=== PATIENT | male | born 1975 | race Hispanic/Latino ===

== ENCOUNTER → 2024-05-09 | Outpatient (CLI) | payer OTHER | END | disposition home or self-care (01) | LOC: LAB 12:24 | PROVIDERS: ATTEND Surgery | DX: C20 Malignant neoplasm of rectum (principal) ==

== ENCOUNTER → 2024-07-06 | Outpatient (CLI) | payer OTHER ==
[~2024-07-06] VITALS: Ht 167.6 cm; Wt 93.7 kg
[~2024-07-06] MED LIST: LISI20TA24 PO; METF-444 PO
--- NOTE | 2024-07-06 13:17 | EKG ---
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
[2024-07-06 13:32] VITALS: BP 160/82; PULSE 94; RESP 16; TEMP 98.1
[2024-07-06 13:32] LABS: BASOPHILS # (AUTO) 0.01 K/uL (0.00-0.20); BASOPHILS % (AUTO) 0.3 % (0.0-5.0); EOSINOPHILS # (AUTO) 0.04 K/uL (0.00-0.70); HEMATOCRIT 31.7 % (42-54); IMMATURE GRANULOCYTE ABSOLUTE 0.02 K/uL (0-1); LYMPHOCYTES # (AUTO) 0.5 K/uL (1.0-4.8); MEAN CORPUSCULAR HEMOGLOBIN 32.4 pg (27.0-33.0); MEAN CORPUSCULAR HGB CONC 33.4 g/dL (32.0-36.0); MEAN CORPUSCULAR VOLUME 96.9 fL (79-99); MONOCYTES # (AUTO) 0.6 K/uL (0.1-1.0); MONOCYTES % (AUTO) 14.7 % (3.0-13.0); NEUTROPHILS # (AUTO) 2.7 K/uL (1.8-7.7); NEUTROPHILS % (AUTO) 69.5 % (40.0-77.0); PLATELET COUNT (AUTO) 260 K/uL (130-400); RED BLOOD CELL COUNT(AUTO) 3.27 MIL/uL (4.50-6.20); RED CELL DISTRIBUTION WIDTH 15.9 % (11.0-15.5); WHITE BLOOD COUNT (AUTO) 3.9 K/uL (4.8-10.8)
[2024-07-06 13:36] LABS: INR 0.97 (0.85-1.15); PROTHROMBIN TIME 10.3 SEC (9.6-11.6)
[2024-07-06 13:37] LABS: PARTIAL THROMBOPLASTIN TIME 25.3 SEC (26.3-35.5)
[2024-07-06 13:39] LABS: ALBUMIN 3.6 g/dL (3.5-5.0); BILIRUBIN,TOTAL 0.5 mg/dL (0.2-1.0); CREATININE 0.8 mg/dL (0.5-1.3); POTASSIUM 4.3 mmol/L (3.5-5.1)
== END | disposition home or self-care (01) ==
LOC: DAH 12:42 → EDSTATUS 14:00
PROVIDERS: ATTEND Surgery
DX: C20 Malignant neoplasm of rectum (principal)
CPT/HCPCS: 86900; 80053; 85025; 85610; 85730; 86850; 86901; 36415; 93005; A6260

== ENCOUNTER 2024-11-23 11:00 | Inpatient (IN) | payer OTHER ==
[~2024-11-23] VITALS: Ht 167.6 cm; Wt 87.8 kg
[2024-11-23 12:10] VITALS: BP 137/70; PULSE 90; RESP 18; TEMP 98.4
[2024-11-23 12:31] LABS: IMMATURE GRANULOCYTE ABSOLUTE 0.04 K/uL (0-1); NUCLEATED RED BLOOD CELLS 0.0 % (0.0-0.19); PLATELET COUNT (AUTO) 256 K/uL (130-400); RED BLOOD CELL COUNT(AUTO) 2.62 MIL/uL (4.50-6.20); RED CELL DISTRIBUTION WIDTH 13.7 % (11.0-15.5); WHITE BLOOD COUNT (AUTO) 3.8 K/uL (4.8-10.8)
[2024-11-23 12:39] LABS: ASPARTATE AMINOTRANSFERASE 21.0 U/L (10-37); CREATININE 1.1 mg/dL (0.5-1.3); GLOMERULAR FILTR. RATE CALC 81.0 mL/min (>90); GLUCOSE,RANDOM 178.0 mg/dL (70-105); SODIUM SERUM 139.0 mmol/L (136-145); TOTAL PROTEIN, SERUM 8.2 g/dL (6.0-8.3); UREA NITROGEN, BLOOD 25.0 mg/dL (7-18)
[2024-11-23 12:51] LABS: INR <= 0.93 (0.85-1.15)
--- NOTE | 2024-11-23 18:16 | EKG ---
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
--- NOTE | 2024-11-26 15:28 | NUR ---
RE:LABS REPORTED CBC RESULTS TO DR BUNCH/TERRA, NO NEW ORDERS RECEIVED.
[2024-11-27] VITALS (27 sets, daily range): BP systolic 94–134; BP diastolic 52–80; PULSE 87–106; RESP 13–18; TEMP 97.1–98.2; O2SAT 96–98
[2024-11-27] MEDS ORDERED: LIDOCAINE 1%-EPI 1:100,000 20 ML VIAL ONE ×2 (06:37→07:52)
[2024-11-27] MEDS ORDERED: LIDOCAINE PF 100MG/5ML (2%) SYRINGE 5ML ONE (09:05)
[2024-11-27] MEDS ORDERED: MIDAZOLAM HCL 1 MG/ML 2ML VIAL ONE (09:07)
[2024-11-27] MEDS: SUGAMMADEX SODIUM 200 MG/2 ML VIAL IV ONE (09:24)
[2024-11-27] MEDS: ERTAPENEM SODIUM 1 GM/VIAL IV ONE (09:30)
[2024-11-27] MEDS: INDOCYANINE GREEN 25 MG VIAL IJ ONE (12:11)
--- NOTE | 2024-11-27 14:28 | OP ---
Operative Note: DATE OF PROCEDURE: 11/27/24 SURGEON: GAIL GIMENEZ MD LUMBER HANDLER: None ANESTHESIA: General ANESTHESIOLOGIST/CIRCULATION MAN: CIRCULATION MAN PREOPERATIVE DIAGNOSIS: Coloanal anastomotic stricture History of rectal cancer Ileostomy status POSTOPERATIVE DIAGNOSIS: Same PROCEDURE: Robotic Low Anterior resection without anastomosis Robotic/Laparoscopic Colostomy creation Ileostomy closure with small bowel resection Systemic ICG for assessment of anastomotic grafts ESTIMATED BLOOD LOSS: [] INDICATIONS: Mr. Triana is a very pleasant 49-year-old male with a history of rectal cancer status post low anterior resection with coloanal anastomosis with subsequent coloanal anastomotic severe stricture which was unable to be salvaged. Given this the patient was offered a permanent stoma with a colostomy with ileostomy closure. Complications, risk, alternative and benefits were explained to the patient including but not limited to infection, bleeding, injury to surrounding structures such as blood vessels nerves and other organs, permanent stoma, sepsis, recurrence of disease and need for additional procedures. The patient voiced understanding and wished to proceed with surgery. All of the patient's questions were answered to his satisfaction. DESCRIPTION OF PROCEDURE: After informed consent was obtained, the patient was taken to the operating room and laid in the supine position. Once general endotracheal anesthesia was obtained, the patient was carefully placed into the lithotomy position. Next the abdomen was prepped and draped in the usual sterile fashion. A timeout was performed to confirm the correct patient and procedure. Next we entered the abdomen at Hernandez's point with a Veress needle and was confirmed to be intra-abdominal with a saline drop test. Next pneumoperitoneum was obtained, we then made an 8 mm incision followed placement of a trocar. The camera was inserted and the abdomen was inspected Next the remaining trocars were inserted under direct visualization in a horizontal manner across the mid abdomen at prior incision sites. Next the robot was docked in the usual sterile fashion. We then placed an assist port in left upper quadrant given the ileostomy was in the right upper quadrant. We began by mobilizing the sigmoid colon in a [id number] manner. There was a significant amount of adhesions given his prior low anterior resection against a left pelvic sidewall. We took the proximal sigmoid colon off of the left lower quadrant and left pelvic sidewall. We then dissected posteriorly to find a plane to the side promontory and then was able to identify the lateral side ensuring that we did not into the retroperitoneum the area of the ureter. We then dissected posteriorly which was extremely difficult due to the prior surgery and radiation to the pelvis. We took the mesentery of the proximal sigmoid colon up to a healthy portion of the bowel. Then transected with a blue load stapler. We then continued the pelvic dissection laterally on both the left and right side. This tissue was extremely vascular and scarred making the dissection extremely difficult. The patient's pelvis was also extremely small and fibrotic to the prior radiation. We dissected as distal as possible taking great care to not injure pelvic structures. We got below the level of the prostate tissue the pelvis was extremely firm and fibrotic. Given this we then transected the far distal as possible with a blue load stapler. Systemic ICG was given intravenously and confirmed the remaining colon in the pelvis was well-perfused as well as the colon to be used for the colostomy. We then irrigated the pelvis until clear and ensured hemostasis. We then placed hemostatic powder down to the pelvis. We then undocked the robot and began to take down the ileostomy.Next the ileostomy site was incised leaving a small rim of skin. Dissection was carried down to release the small bowel from the surrounding tissue and fascia. We then took great care to separate the small bowel from the surrounding fascia. Once this was performed we are able to pull up an adequate amount of small bowel to perform and anastomosis. We chose two healthy segments of small bowel and performed a small bowel resection of the small bowel between these points. The mesentery was clamped and tied for hemostasis. Next using a blue load HÉCTOR stapler the proximal and distal small bowel were transected and the small bowel sent as specimen. Next, an allis clamp was placed onto the edge of the staple line, this was cut off and the stapler placed into the small bowel. A performed a side to side stapled small bowel anastomosis in the standard fashion. Prior to closing the common enterotomy hemostasis of the interior staple line was checked for and obtained. Next allis clamps were placed onto the common enterotomy which was closed with a TA 60 stapler. Next the staple line was oversewn. A crotch stitch was placed. Hemostasis was checked for and obtained. Next the small bowel was placed back into the abdomen. We then placed a wound protector into this area and regained pneumoperitoneum. We assured hemostasis and placed additional hemostatic powder into the left lower quadrant. We then grasped the colon and brought it out through this wound protector at the prior ileostomy site. It was decided to matured the colostomy at this site to avoid complex hernia formation in the future. We then left a drain down to the pelvis. All trocars were removed and the 12 mm port site was closed with a Vicryl stitch. A drain stitch stay drain in place. We then closed all skin incisions with Monocryl sutures and Dermabond was placed as sterile dressing. We then m atured the colostomy in the usual fashion using chromic sutures. An ostomy appliance was placed. The patient tolerated the procedure well was taken to the recovery in stable condition. I discussed the above with the family member at completion of the case. Complications: none Blood loss 30cc Specimens: small bowel Colon COUNTS WERE REPORTED CORRECT X 2 BY NURSING STAFF GAIL GIMENEZ MD Nov 27, 2024 14:28
[2024-11-27] MEDS ORDERED: GLUCAGON 1MG KIT 1 MG ML IM PRN (16:00)
[2024-11-27] MEDS ORDERED: DEXTROSE 50%-WATER 50 ML DISP.SYRIN IV PRN (16:00)
[2024-11-27] MEDS: LACTATED RINGERS 1000ML 1,000 ML IV SCH (17:22)
--- NOTE | 2024-11-27 18:39 | HP ---
[facility] Date of Service: Nov 27, 2024 Time of Service: 18:29 HISTORY OF PRESENT ILLNESS: 49-year-old male with past medical history of rectal cancer, hypertension, diabetes mellitus type 2 who presented to the hospital secondary to who pre sented to the hospital secondary to coloanal anastomotic stricture. The patient had previously undergone a low anterior resection with coloanal anastomosis with subsequent colo anal anastomotic severe stricture which was unable to be salvaged. Patient was offered permanent stoma with colostomy and ileostomy closure. The patient was evaluated by Colorectal surgery as outpatient and agreed to the procedure. Patient underwent robotic low anterior resection without anastomosis, robotic/laparoscopic colostomy creation, ileostomy closure with small bowel resection by Dr. cerrato on 11/27/2024. The patient seen postprocedure. Currently denies any chest pain, shortness of breath, abdominal pain, nausea, vomiting. The patient is being followed by Dr. Thurman oncologist in [place]. Currently he is not on chemotherapy. Labs were notable for white count of 3.8, hemoglobin was 9.2, MCV was 104.6, platelet count was 256 K, sodium was 139, potassium was 5.1, creatinine was 1.1, blood glucose was 178 REVIEW OF SYSTEMS CONSTITUTIONAL: Denies fevers, chills, or night sweats. No unintentional weight loss reported. NEUROLOGICAL: Denies headache, amaurosis fugax, motor weakness, sensory deficit, vertigo/spinning sensation, gait abnormalities, or tremors. ENT: No hearing loss, otalgia, otorrhea, rhinitis, rhinorrhea, hoarseness, or sore throat. CARDIOVASCULAR: Denies any exertional angina, dyspnea on exertion, orthopnea, paroxysmal nocturnal dyspnea, palpitations, life-threatening arrhythmias, claudication. PULMONARY: Denies any shortness of breath, cough, phlegm/sputum, hemoptysis, pleuritic chest pain. SLEEP: Denies morning headaches, daytime somnolence or napping. Denies difficulty falling asleep, staying asleep, waking from sleep. Denies knowledge of snoring. GASTROINTESTINAL: Denies any type of dysphagia to either liquids or solids. Denies nausea, vomiting, pyrosis, early satiety, abdominal pain, diarrhea, constipation, or changes in stool consistency or caliber. Denies coffee-ground emesis, hematemesis, hematochezia, or melanotic stools. GENITOURINARY: Denies frequency, urgency, nocturia, hematuria or incontinence (Storage/Irritative symptoms.) Low urinary stream, straining to void, urinary intermittency or hesitancy, splitting of the voiding stream, terminal dribbling. ENDOCRINOLOGIC: Denies polyuria, polydipsia, polyphagia or heat/cold intolerances. HEMATOLOGIC: Denies thrombophilia/previous clots, or coagulopathy/bleeding disorders. ONCOLOGIC: Denies personal history of malignancy. DERMATOLOGIC: Denies rashes or pruritus. PSYCHIATRIC: Denies any suicidal or homicidal ideation. Denies hallucinations. PAST MEDICAL HISTORY: Hypertension, diabetes mellitus type 2, rectal cancer PAST SURGICAL HISTORY: Robotic low anterior resection, colo anal pull-through anastomosis, robotic diverting loop ileostomy, amniotic graft placement on 07/25/2024 PAST SOCIAL HISTORY: Denied any smoking, alcohol, drug use FAMILY HISTORY: Denied any pertinent family history Coded Allergies: No Known Drug Allergies (Unverified Allergy, Unknown, 07/06/24) PHYSICAL EXAM GENERAL APPEARANCE: The patient is awake, alert, and oriented, in no acute cardiopulmonary distress. NEUROLOGICAL: Cranial nerves II-XII grossly intact. Motor is 5/5 in bilateral upper and lower extremities proximal to distal. No sensory deficits. HEENT: Face is symmetric. Pupils are equal and reactive. Extraocular movements are intact. NECK: Supple. No JVD. No thyromegaly. No submental, submandibular, pre- /postauricular, occipital or supraclavicular lymphadenopathy. CHEST: Normal chest expansion. No Telemetry. LUNGS: Absence of any rales, rhonchi or any wheezing. CARDIOVASCULAR: Regular. S1 and S2 normal. No appreciable rubs, murmurs or gallops. ABDOMEN: Soft, nontender, and nondistended. There is no rebound, voluntary guarding, or rigidity. : Deferred. No Hugo. EXTREMITIES: Non-edematous and not cyanotic. No clubbing. Good capillary refill. SKIN: No skin breakdown. Vital Sign (Last 24 Hours) 11/27/24 11/27/24 11/27/24 11/27/24 07:30 14:50 14:55 16:15 Temp 97.3 Pulse 96 Resp 18 B/P (MAP) 112/62 Pulse Ox 97 O2 Delivery Room Air O2 Flow Rate 2.0 FiO2 21 LABS: Laboratory: Test 11/27/24 16:02 Range/Units Whole Blood Glucose 283 H 70-110 MG/DL Current Medications Medications (Trade) Dose Ordered Sig/Ken Route PRN Reason Start Time Stop Time Status Last Admin Dose Admin Acetaminophen (TYLenol 325MG TAB) 650 mg Q4H PO 11/27/24 14:30 12/27/24 14:29 Dextrose (D50w) 50 ml AD PRN IV HYPOGLYCEMIA PROTOCOL 11/27/24 16:00 12/27/24 15:59 Enoxaparin Sodium (Lovenox) 40 mg DAILY SQ 11/28/24 08:00 12/28/24 07:59 Gabapentin (NEURontin 100 mg CAP) 200 mg TID PO 11/27/24 21:00 12/27/24 20:59 Glucagon (Glucagon 1mg Kit) 1 mg AD PRN IM HYPOGLYCEMIA PROTOCOL 11/27/24 16:00 12/27/24 15:59 Hydromorphone HCl (DiLAUDid 0.5MG INJ) 0.5 mg Q4H PRN IVP SEVERE PAIN (7-10) 11/27/24 14:30 12/02/24 14:29 Insulin Human Regular (humuLIN R 100 UNIT/ML 3ML) AD PRN SQ SLIDING SCALE COVERAGE 11/27/24 14:30 11/27/24 15:57 DC Insulin Human Regular (humuLIN R 100 UNIT/ML 3ML) INSULIN SLIDING SCAL... ACHS SQ 11/27/24 16:30 12/27/24 16:29 Lactated Ringer's 1,000 ml @ 50 mls/hr Q20H IV 11/27/24 14:30 12/27/24 14:29 Lisinopril (Prinivil 20mg) 20 mg HS PO 11/27/24 21:00 12/27/24 20:59 Ondansetron HCl (zoFRAN 4MG INJ) 4 mg Q4H PRN IVP NAUSEA 11/27/24 14:30 12/27/24 14:29 Oxycodone HCl (ROXicoDONE) 5 mg Q4H PRN PO MODERATE PAIN (4-6) 11/27/24 14:30 12/04/24 14:29 DIAGNOSTICS / RADIOLOGY: [ ] ASSESSMENT: [place] anal anastomotic stricture status post robotic low anterior resection without anastomosis, robotic/laparoscopic colostomy creation, ileostomy closure with small bowel resection Hypertension Diabetes mellitus type 2 Microcytic anemia Rectal cancer PLAN: - continue with admission in medical-surgical unit -in reference to low anterior resection with colostomy creation. We will follow surgical recommendations. We will follow up pain medication recommendations per surgery. Incentive spirometer Q 1-2 hours -obtain home medications will be reconciled once available -obtain anemia panel for tomorrow. Start IV iron if anemia consistent with iron deficiency anemia -repeat CBC, BMP for tomorrow -start sliding scale insulin and hypoglycemia protocol -further orders per hospitalization course Advanced Care Planning Which of the following were discussed: Hospice care: Yes __ No _x_ Therapeutic options: Yes __ No __ Advance directives: Yes __ No __ Other discussions: Discussed with who?: patient was full code (Patient, family or surrogates) Voluntary nature of this service was explained to the patient? Yes _x_ No __ Amount of time spent: 25 minutes TONI Easton MD, MD Nov 27, 2024 18:39
[2024-11-27] MEDS: LISINOPRIL 20 MG TABLET PO SCH (20:45)
[2024-11-27] MEDS: FAMOTIDINE 20MG VIAL IV SCH (21:07)
[2024-11-28] VITALS (7 sets, daily range): BP systolic 90–115; BP diastolic 54–70; PULSE 80–101; RESP 17–20; TEMP 98–98.5; O2SAT 96–98
[2024-11-28 06:25] LABS: IMMATURE GRANULOCYTE ABSOLUTE 0.05 K/uL (0-1); NUCLEATED RED BLOOD CELLS 0.0 % (0.0-0.19); PLATELET COUNT (AUTO) 216 K/uL (130-400); RED BLOOD CELL COUNT(AUTO) 2.08 MIL/uL (4.50-6.20); RED CELL DISTRIBUTION WIDTH 13.5 % (11.0-15.5); WHITE BLOOD COUNT (AUTO) 7.1 K/uL (4.8-10.8)
[2024-11-28 06:34] LABS: CREATININE 1.3 mg/dL (0.5-1.3); GLOMERULAR FILTR. RATE CALC 67.0 mL/min (>90); GLUCOSE,RANDOM 149.0 mg/dL (70-105); SODIUM SERUM 136.0 mmol/L (136-145); UREA NITROGEN, BLOOD 25.0 mg/dL (7-18)
[2024-11-28 07:18] LABS: % IRON SATURATION 27.6 % (30-44); IRON, SERUM 62.0 mcg/dL (65-175)
--- NOTE | 2024-11-28 07:38 | PN ---
[facility] PROGRESS NOTE Date of Service: Nov 28, 2024 Time of Service: 07:10 SUBJECTIVE: 49-year-old male with past medical history of rectal cancer, hypertension, diabetes mellitus type 2 who presented to the hospital secondary to who presented to the hospital secondary to coloanal anastomotic stricture. The patient had previously undergone a low anterior resection with coloanal anasto mosis with subsequent colo anal anastomotic severe stricture which was unable to be salvaged. Patient was offered permanent stoma with colostomy and ileostomy closure. The patient was evaluated by Colorectal surgery as outpatient and agreed to the procedure. Patient underwent robotic low anterior resection without anastomosis, robotic/laparoscopic colostomy creation, ileostomy closure with small bowel resection by Dr. cerrato on 11/27/2024. The patient seen postprocedure. Currently denies any chest pain, shortness of breath, abdominal pain, nausea, vomiting. The patient is being followed by Dr. Thurman oncologist in [place]. Currently he is not on chemotherapy. Labs were notable for white count of 3.8, hemoglobin was 9.2, MCV was 104.6, platelet count was 256 K, sodium was 139, potassium was 5.1, creatinine was 1.1, blood glucose was 178 with a history of rectal cancer status post low anterior resection with coloanal anastomosis with subsequent coloanal anastomotic severe stricture which was unable to be salvaged. Given this the patient was offered a permanent stoma with a colostomy with ileostomy closure. Robotic Low Anterior resection without anastomosis Robotic/Laparoscopic Colostomy creation Ileostomy closure with small bowel resection REVIEW OF SYSTEMS CONSTITUTIONAL: Denies fevers, chills, or night sweats. No unintentional weight loss reported. NEUROLOGICAL: Denies headache, amaurosis fugax, motor weakness, sensory deficit, vertigo/spinning sensation, gait abnormalities, or tremors. ENT: No hearing loss, otalgia, otorrhea, rhinitis, rhinorrhea, hoarseness, or sore throat. CARDIOVASCULAR: Denies any exertional angina, dyspnea on exertion, orthopnea, paroxysmal nocturnal dyspnea, palpitations, life-threatening arrhythmias, claudication. PULMONARY: Denies any shortness of breath, cough, phlegm/sputum, hemoptysis, pleuritic chest pain. SLEEP: Denies morning headaches, daytime somnolence or napping. Denies difficulty falling asleep, staying asleep, waking from sleep. Denies knowledge of snoring. GASTROINTESTINAL: Denies any type of dysphagia to either liquids or solids. Denies nausea, vomiting, pyrosis, early satiety, abdominal pain, diarrhea, c onstipation, or changes in stool consistency or caliber. Denies coffee-ground emesis, hematemesis, hematochezia, or melanotic stools. GENITOURINARY: Denies frequency, urgency, nocturia, hematuria or incontinence (Storage/Irritative symptoms.) Low urinary stream, straining to void, urinary intermittency or hesitancy, splitting of the voiding stream, terminal dribbling. ENDOCRINOLOGIC: Denies polyuria, polydipsia, polyphagia or heat/cold intolerances. HEMATOLOGIC: Denies thrombophilia/previous clots, or coagulopathy/bleeding disorders. ONCOLOGIC: Denies personal history of malignancy. DERMATOLOGIC: Denies rashes or pruritus. PSYCHIATRIC: Denies any suicidal or homicidal ideation. Denies hallucinations. PHYSICAL EXAM GENERAL APPEARANCE: The patient is awake, alert, and oriented, in no acute ca rdiopulmonary distress. NEUROLOGICAL: Cranial nerves II-XII grossly intact. Motor is 5/5 in bilateral upper and lower extremities proximal to distal. No sensory deficits. HEENT: Face is symmetric. Pupils are equal and reactive. Extraocular movements are intact. NECK: Supple. No JVD. No thyromegaly. No submental, submandibular, pre- /postauricular, occipital or supraclavicular lymphadenopathy. CHEST: Normal chest expansion. No Telemetry. LUNGS: Absence of any rales, rhonchi or any wheezing. CARDIOVASCULAR: Regular. S1 and S2 normal. No appreciable rubs, murmurs or gallops. ABDOMEN: Soft, nontender, and nondistended. There is no rebound, voluntary guarding, or rigidity. : Deferred. No Hugo. EXTREMITIES: Non-edematous and not cyanotic. No clubbing. Good capillary refill. SKIN: No skin breakdown. Vital Signs (last 8hr) Date Time Temp Pulse Resp B/P (MAP) Pulse Ox O2 Delivery O2 Flow Rate FiO2 11/28/24 03:54 98.2 101 17 100/58 97 Room Air 11/27/24 23:42 98.2 106 17 94/52 95 Room Air LABS: Laboratory: Test 11/28/24 06:05 11/28/24 05:31 Range/Units White Blood Count 7.1 4.8-10.8 K/uL Red Blood Count 2.08 L 4.50-6.20 MIL/uL Hemoglobin 7.4 L 14.0-18.0 g/dL Hematocrit 21.1 L 42-54 % Mean Corpuscular Volume 101.4 H 79-99 fL Mean Corpuscular Hemoglobin 35.6 H 27.0-33.0 pg Mean Corpuscular Hemoglobin Concent 35.1 32.0-36.0 g/dL Red Cell Distribution Width 13.5 11.0-15.5 % Platelet Count 216 130-400 K/uL Mean Platelet Volume 9.5 7.5-10.5 fL Immature Granulocyte % (Auto) 0.7 0-1 % Neutrophils (%) (Auto) 79.4 H 40.0-77.0 % Lymphocytes (%) (Auto) 6.8 L 21.0-51.0 % Monocytes (%) (Auto) 13.0 3.0-13.0 % Eosinophils (%) (Auto) 0.0 0.0-8.0 % Basophils (%) (Auto) 0.1 0.0-5.0 % Neutrophils # (Auto) 5.6 1.8-7.7 K/uL Lymphocytes # (Auto) 0.5 L 1.0-4.8 K/uL Monocytes # (Auto) 0.9 0.1-1.0 K/uL Eosinophils # (Auto) 0.00 0.00-0.70 K/uL Basophils # (Auto) 0.01 0.00-0.20 K/uL Absolute Immature Granulocyte (auto 0.05 0-1 K/uL Nucleated Red Blood Cells 0.0 0.0-0.19 % Sodium Level 136 136-145 mmol/L Potassium Level 4.6 3.5-5.1 mmol/L Chloride Level 106 101-111 mmol/L Carbon Dioxide Level 24 21-32 mmol/L Blood Urea Nitrogen 25 H 7-18 mg/dL Creatinine 1.3 0.5-1.3 mg/dL Glomerular Filtration Rate Calc 67 >90 mL/min Random Glucose 149 H 70-105 mg/dL Total Calcium 8.3 L 8.5-10.1 mg/dL Whole Blood Glucose 143 H 70-110 MG/DL Current Medications Medications (Trade) Dose Ordered Sig/Ken Route PRN Reason Start Time Stop Time Status Last Admin Dose Admin Acetaminophen (TYLenol 325MG TAB) 650 mg Q4H PO 11/27/24 14:30 12/27/24 14:29 11/28/24 06:36 650 MG Dextrose (D50w) 50 ml AD PRN IV HYPOGLYCEMIA PROTOCOL 11/27/24 16:00 12/27/24 15:59 Enoxaparin Sodium (Lovenox) 40 mg DAILY SQ 11/28/24 08:00 12/28/24 07:59 Famotidine (Pepcid 20mg Vial) 20 mg BID IV 11/27/24 21:00 12/27/24 20:59 11/27/24 21:07 20 MG Gabapentin (NEURontin 100 mg CAP) 200 mg TID PO 11/27/24 21:00 12/27/24 20:59 11/27/24 21:07 200 MG Glucagon (Glucagon 1mg Kit) 1 mg AD PRN IM HYPOGLYCEMIA PROTOCOL 11/27/24 16:00 12/27/24 15:59 Hydromorphone HCl (DiLAUDid 0.5MG INJ) 0.5 mg Q4H PRN IVP SEVERE PAIN (7-10) 11/27/24 14:30 12/02/24 14:29 Insulin Human Regular (humuLIN R 100 UNIT/ML 3ML) AD PRN SQ SLIDING SCALE COVERAGE 11/27/24 14:30 11/27/24 15:57 DC Insulin Human Regular (humuLIN R 100 UNIT/ML 3ML) INSULIN SLIDING SCAL... ACHS SQ 11/27/24 16:30 12/27/24 16:29 11/27/24 21:08 5 UNIT Lactated Ringer's 1,000 ml @ 50 mls/hr Q20H IV 11/27/24 14:30 12/27/24 14:29 11/27/24 17:22 50 MLS/HR Lisinopril (Prinivil 20mg) 20 mg HS PO 11/27/24 21:00 12/27/24 20:59 Ondansetron HCl (zoFRAN 4MG INJ) 4 mg Q4H PRN IVP NAUSEA 11/27/24 14:30 12/27/24 14:29 Oxycodone HCl (ROXicoDONE) 5 mg Q4H PRN PO MODERATE PAIN (4-6) 11/27/24 14:30 12/04/24 14:29 DIAGNOSTICS / RADIOLOGY: [ ] ASSESSMENT: [place] anal anastomotic stricture status post robotic low anterior resection without anastomosis, robotic/laparoscopic colostomy creation, ileostomy closure with small bowel resection Hypertension Diabetes mellitus type 2 Macrocytic anemia Rectal cancer PLAN: [place] anal anastomotic stricture status post robotic low anterior resection without anastomosis, robotic/laparoscopic colostomy creation, ileostomy closure with small bowel resection Rectal cancer -We will follow surgical recommendations. -We will follow up pain medication recommendations per surgery. -Incentive spirometer Q 1-2 hours -repeat CBC, BMP for tomorrow Diabetes mellitus type 2 -start sliding scale insulin and hypoglycemia protocol Macrocytic anemia -hemoglobin 7.4, ferritin 60, saturation 27.6, iron 62, TIBC 224, B12 142 -we will give iron sucrose -we will start him on vitamin B12 DVT prophylaxis: Lovenox GI prophylaxis: famotidine ATTESTATION BY PHYSICIAN I have seen and examined the patient. I reviewed the documentation, medical decision making, and treatment plan as noted by the resident provider above. I agree with the findings and plan of care. Ever Arevalo MD, SUNIL MD Nov 28, 2024 07:38
[2024-11-28] MEDS: ENOXAPARIN SODIUM 40 MG/0.4 ML SYRINGE SQ SCH (08:00)
--- NOTE | 2024-11-28 10:38 | NUR ---
DCP:HOME Pt currently lives at home with his siblings. Pt does not have any DME, home health, or provider services. Pt states that he is able to complete ADLs independently. PCP is Dr. Reese Seo and uses [facility] for any RX needs. At [place] pt will want to go home and family can assist with transportation. Addendum: 11/28/24 at 1042 by OBINNA GONSALEZ SS Amended: Links added.
--- NOTE | 2024-11-28 11:15 | NUR ---
PER PATIENT, NURSE AND LINE SUPPLY, PATIENT HAS BEEN WALKING IN THE HALLWAYS NO DEFICITS NOTED. DC FROM PT. Addendum: 11/28/24 at 1218 by JAYCEE SCHMIDT PT Amended: Links added.
--- NOTE | 2024-11-28 14:06 | PN ---
[facility] PROGRESS NOTE Date of Visit: Nov 28, 2024 Time of Visit: 13:57 Events / Notes: [49 yo with history of rectal cancer, ileostomy status, hypertension, Type 1 DM, who developed coloanal anastomotic stricture and underwent a robotic low anterior resection without anastomosis, colostomy creation, ileostomy closure with small bowel resection, systemic ICG for assessment of anastomotic grafts. Patient is doing very well. VSS. He has tolerated fluids without any n/v. BBS are clear. Abdomen is soft. Large amounts of soft to watery output from colostomy. Incisions D&I instant potato processor. Stevie drain with serosanguinous output. Patient has voided without difficulties. Encouraged ambulation. Patient agreed. Review of Systems: CONSTITUTIONAL: No malaise or change in sensation of wellbeing. ENMT: No rhinorrhea, otorrhea, sinus pain, ear ache. CARDIOVASCULAR: No angina, palpitations, orthopnea or paroxysmal dyspnea. RESPIRATORY: No SOB. GASTROINTESTINAL: No abdominal pain, nausea, vomiting, diarrhea, hematemesis, melena or change in the patient's habitual bowel movements consistency/number. GENITOURINARY: No dysuria, hematuria or change in bladder continence. MUSCULOSKELETAL: No new muscle pain or decrease in muscular strength. No new joint swelling, redness or tenderness. SKIN: No new rash. Physical Exam: GEN: Awake, alert, oriented in person, time and place, and in no acute distress. HEENT: No rhinorrhea. Oral pharyngeal mucosa is moist and within normal limits. CHEST: Lung auscultation revealed normal breath sounds bilaterally. CARDIAC: Heart sounds are regular. ABD: Soft, non-tender and not distended. No peritoneal signs on palpation. Normal bowel sounds. Colostomy with large amounts of soft to watery output. EXT: No cyanosis or clubbing. No edema. SKIN: Intact. No rashes. JOINTS: No evidence of synovitis or acute arthritis. NEURO: Alert and oriented to name, place and person. No focal motor deficits. Normal speech. Vital Signs (last 8hr) Date Time Temp Pulse Resp B/P (MAP) Pulse Ox O2 Delivery O2 Flow Rate FiO2 11/28/24 11:28 98.4 91 18 101/54 97 Room Air 11/28/24 08:00 96 Room Air* 0 21 11/28/24 07:28 98.4 92 18 90/54 96 Room Air Laboratory: [ ] Laboratory: Test 11/28/24 11:17 11/28/24 09:27 11/28/24 06:05 Range/Units Whole Blood Glucose 165 H 70-110 MG/DL Hemoglobin 7.7 L 14.0-18.0 g/dL Hematocrit 23.7 L 42-54 % White Blood Count 7.1 4.8-10.8 K/uL Red Blood Count 2.08 L 4.50-6.20 MIL/uL Mean Corpuscular Volume 101.4 H 79-99 fL Mean Corpuscular Hemoglobin 35.6 H 27.0-33.0 pg Mean Corpuscular Hemoglobin Concent 35.1 32.0-36.0 g/dL Red Cell Distribution Width 13.5 11.0-15.5 % Platelet Count 216 130-400 K/uL Mean Platelet Volume 9.5 7.5-10.5 fL Immature Granulocyte % (Auto) 0.7 0-1 % Neutrophils (%) (Auto) 79.4 H 40.0-77.0 % Lymphocytes (%) (Auto) 6.8 L 21.0-51.0 % Monocytes (%) (Auto) 13.0 3.0-13.0 % Eosinophils (%) (Auto) 0.0 0.0-8.0 % Basophils (%) (Auto) 0.1 0.0-5.0 % Neutrophils # (Auto) 5.6 1.8-7.7 K/uL Lymphocytes # (Auto) 0.5 L 1.0-4.8 K/uL Monocytes # (Auto) 0.9 0.1-1.0 K/uL Eosinophils # (Auto) 0.00 0.00-0.70 K/uL Basophils # (Auto) 0.01 0.00-0.20 K/uL Absolute Immature Granulocyte (auto 0.05 0-1 K/uL Nucleated Red Blood Cells 0.0 0.0-0.19 % Reticulocyte Count (auto) 1.78216 0.42-2.23 % Immature Reticulocyte Fraction 21.20 H 0.18-0.48 % Sodium Level 136 136-145 mmol/L Potassium Level 4.6 3.5-5.1 mmol/L Chloride Level 106 101-111 mmol/L Carbon Dioxide Level 24 21-32 mmol/L Blood Urea Nitrogen 25 H 7-18 mg/dL Creatinine 1.3 0.5-1.3 mg/dL Glomerular Filtration Rate Calc 67 >90 mL/min Random Glucose 149 H 70-105 mg/dL Total Calcium 8.3 L 8.5-10.1 mg/dL Iron Level 62 L 65-175 mcg/dL Total Iron Binding Capacity 224 L 250-450 mcg/dL Percent Iron Saturation 27.6 L 30-44 % Ferritin 60 30-400 ng/mL Vitamin B12 Level 142 L 193-986 pg/mL Current Medications Medications (Trade) Dose Ordered Sig/Ken Route PRN Reason Start Time Stop Time Status Last Admin Dose Admin Acetaminophen (TYLenol 325MG TAB) 650 mg Q4H PO 11/27/24 14:30 12/27/24 14:29 11/28/24 13:20 650 MG Dextrose (D50w) 50 ml AD PRN IV HYPOGLYCEMIA PROTOCOL 11/27/24 16:00 12/27/24 15:59 Enoxaparin Sodium (Lovenox) 40 mg DAILY SQ 11/28/24 08:00 12/28/24 07:59 11/28/24 08:00 40 MG Famotidine (Pepcid 20mg Vial) 20 mg BID IV 11/27/24 21:00 12/27/24 20:59 11/28/24 08:00 20 MG Gabapentin (NEURontin 100 mg CAP) 200 mg TID PO 11/27/24 21:00 12/27/24 20:59 11/28/24 13:20 200 MG Glucagon (Glucagon 1mg Kit) 1 mg AD PRN IM HYPOGLYCEMIA PROTOCOL 11/27/24 16:00 12/27/24 15:59 Hydromorphone HCl (DiLAUDid 0.5MG INJ) 0.5 mg Q4H PRN IVP SEVERE PAIN (7-10) 11/27/24 14:30 12/02/24 14:29 Insulin Human Regular (humuLIN R 100 UNIT/ML 3ML) AD PRN SQ SLIDING SCALE COVERAGE 11/27/24 14:30 11/27/24 15:57 DC Insulin Human Regular (humuLIN R 100 UNIT/ML 3ML) INSULIN SLIDING SCAL... ACHS SQ 11/27/24 16:30 12/27/24 16:29 11/27/24 21:08 5 UNIT Lactated Ringer's 1,000 ml @ 75 mls/hr [id number] IV 11/27/24 14:30 12/27/24 14:29 11/27/24 17:22 50 MLS/HR Lisinopril (Prinivil 20mg) 20 mg HS PO 11/27/24 21:00 12/27/24 20:59 Ondansetron HCl (zoFRAN 4MG INJ) 4 mg Q4H PRN IVP NAUSEA 11/27/24 14:30 12/27/24 14:29 Oxycodone HCl (ROXicoDONE) 5 mg Q4H PRN PO MODERATE PAIN (4-6) 11/27/24 14:30 12/04/24 14:29 Diagnostics / Radiology: [COPY/PASTE HERE IF NO REPORTS PLEASE DELETE SECTION] Assessment: [Coloanal Anastomotic stricture Ileostomy status History of rectal cancer Hypertension Type 1 DM ] Plan: Case discussed with Dr. Cantrell [ Advance diet as tolerated Encourage ambulation Encourage I/S exercises Pain meds as needed Antiemetics prn Please call with questions, concerns, and change in clinical status Plan for disposition from colorectal standpoint in the next 24-48 hours. Appreciate hospitalist's assistance on our patient's care. ] KEVIN PATTON NP Nov 28, 2024 14:06
[2024-11-28] MEDS: CYANOCOBALAMIN (VITAMIN B-12) 1,000 MCG TABLET PO SCH (16:36)
[2024-11-29] VITALS (11 sets, daily range): BP systolic 112–153; BP diastolic 65–84; PULSE 83–94; RESP 16–20; TEMP 98–99; O2SAT 98–99
[2024-11-29 05:40] LABS: IMMATURE GRANULOCYTE ABSOLUTE 0.04 K/uL (0-1); NUCLEATED RED BLOOD CELLS 0.0 % (0.0-0.19); PLATELET COUNT (AUTO) 217 K/uL (130-400); RED BLOOD CELL COUNT(AUTO) 2.05 MIL/uL (4.50-6.20); RED CELL DISTRIBUTION WIDTH 13.8 % (11.0-15.5); WHITE BLOOD COUNT (AUTO) 5.7 K/uL (4.8-10.8)
[2024-11-29 06:06] LABS: CREATININE 0.9 mg/dL (0.5-1.3); GLOMERULAR FILTR. RATE CALC 103.0 mL/min (>90); GLUCOSE,RANDOM 127.0 mg/dL (70-105); SODIUM SERUM 137.0 mmol/L (136-145); UREA NITROGEN, BLOOD 17.0 mg/dL (7-18)
[2024-11-29] MEDS: CYANOCOBALAMIN (VITAMIN B-12) 1000 MCG/ML 1ML VIAL IM ONE (08:26)
--- NOTE | 2024-11-29 15:16 | PN ---
[facility] PROGRESS NOTE Date of Visit: Nov 29, 2024 Time of Visit: 15:14 Events / Notes: [49 yo with history of rectal cancer, ileostomy status, hypertension, Type 1 DM, who developed coloanal anastomotic stricture and underwent a robotic low anterior resection without anastomosis, colostomy creation, ileostomy closure with small bowel resection, systemic ICG for assessment of anastomotic grafts. Patient is doing very well. VSS. He has tolerated fluids without any n/v. BBS are clear. Abdomen is soft. Large amounts of soft to watery output from colostomy. Incisions D&I potato peeler. Stevie drain with serosanguinous output. Patient has voided without difficulties. Encouraged ambulation. Patient agreed. 11/29/24: No acute events overnight. VSS. Patient is tolerating soft diet with no n/v. He is ambulating and is having good output from colostomy. HGB 7.3. PRBC transfusion in progress. . Home care instructions given with ER warnings. He is to keep f/u appt at [facility] and with John Hunt NP wound care. Plan for discharge from colorectal standpoint tomorrow. Review of Systems: CONSTITUTIONAL: No malaise or change in sensation of wellbeing. ENMT: No rhinorrhea, otorrhea, sinus pain, ear ache. CARDIOVASCULAR: No angina, palpitations, orthopnea or paroxysmal dyspnea. RESPIRATORY: No SOB. GASTROINTESTINAL: No abdominal pain, nausea, vomiting, diarrhea, hematemesis, melena or change in the patient's habitual bowel movements consistency/number. GENITOURINARY: No dysuria, hematuria or change in bladder continence. MUSCULOSKELETAL: No new muscle pain or decrease in muscular strength. No new joint swelling, redness or tenderness. SKIN: No new rash. Physical Exam: GEN: Awake, alert, oriented in person, time and place, and in no acute distress. HEENT: No rhinorrhea. Oral pharyngeal mucosa is moist and within normal limits. CHEST: Lung auscultation revealed normal breath sounds bilaterally. CARDIAC: Heart sounds are regular. ABD: Soft, non-tender and not distended. No peritoneal signs on palpation. Normal bowel sounds. Colostomy with large amounts of soft to watery output. EXT: No cyanosis or clubbing. No edema. SKIN: Intact. No rashes. JOINTS: No evidence of synovitis or acute arthritis. NEURO: Alert and oriented to name, place and person. No focal motor deficits. Normal speech. Vital Signs (last 8hr) Date Time Temp Pulse Resp B/P (MAP) Pulse Ox O2 Delivery O2 Flow Rate FiO2 11/29/24 12:00 98.2 90 18 153/76 98 Room Air 21 11/29/24 08:00 98.4 94 19 123/68 99 Room Air 21 Laboratory: [ ] Laboratory: Test 11/29/24 13:54 11/29/24 11:29 11/29/24 05:09 11/28/24 06:05 Range/Units Hemoglobin 7.3 L 14.0-18.0 g/dL Hematocrit 21.0 *L 42-54 % Whole Blood Glucose 151 H 70-110 MG/DL White Blood Count 5.7 4.8-10.8 K/uL Red Blood Count 2.05 L 4.50-6.20 MIL/uL Mean Corpuscular Volume 103.4 H 79-99 fL Mean Corpuscular Hemoglobin 35.1 H 27.0-33.0 pg Mean Corpuscular Hemoglobin Concent 34.0 32.0-36.0 g/dL Red Cell Distribution Width 13.8 11.0-15.5 % Platelet Count 217 130-400 K/uL Mean Platelet Volume 10.1 7.5-10.5 fL Immature Granulocyte % (Auto) 0.7 0-1 % Neutrophils (%) (Auto) 72.7 40.0-77.0 % Lymphocytes (%) (Auto) 10.9 L 21.0-51.0 % Monocytes (%) (Auto) 14.4 H 3.0-13.0 % Eosinophils (%) (Auto) 1.1 0.0-8.0 % Basophils (%) (Auto) 0.2 0.0-5.0 % Neutrophils # (Auto) 4.1 1.8-7.7 K/uL Lymphocytes # (Auto) 0.6 L 1.0-4.8 K/uL Monocytes # (Auto) 0.8 0.1-1.0 K/uL Eosinophils # (Auto) 0.06 0.00-0.70 K/uL Basophils # (Auto) 0.01 0.00-0.20 K/uL Absolute Immature Granulocyte (auto 0.04 0-1 K/uL Nucleated Red Blood Cells 0.0 0.0-0.19 % Sodium Level 137 136-145 mmol/L Potassium Level 4.1 3.5-5.1 mmol/L Chloride Level 106 101-111 mmol/L Carbon Dioxide Level 26 21-32 mmol/L Blood Urea Nitrogen 17 7-18 mg/dL Creatinine 0.9 0.5-1.3 mg/dL Glomerular Filtration Rate Calc 103 >90 mL/min Random Glucose 127 H 70-105 mg/dL Total Calcium 8.2 L 8.5-10.1 mg/dL Reticulocyte Count (auto) 1.41066 0.42-2.23 % Immature Reticulocyte Fraction 21.20 H 0.18-0.48 % Iron Level 62 L 65-175 mcg/dL Total Iron Binding Capacity 224 L 250-450 mcg/dL Percent Iron Saturation 27.6 L 30-44 % Ferritin 60 30-400 ng/mL Vitamin B12 Level 142 L 193-986 pg/mL Current Medications Medications (Trade) Dose Ordered Sig/Ken Route PRN Reason Start Time Stop Time Status Last Admin Dose Admin Acetaminophen (TYLenol 325MG TAB) 650 mg Q4H PO 11/27/24 14:30 11/28/24 15:49 DC 11/28/24 13:20 650 MG Acetaminophen (TYLenol 500MG TAB) 1,000 mg Q6H PRN PO MILD PAIN (1-3) 11/28/24 16:00 12/28/24 15:59 Dextrose (D50w) 50 ml AD PRN IV HYPOGLYCEMIA PROTOCOL 11/27/24 16:00 12/27/24 15:59 Enoxaparin Sodium (Lovenox) 40 mg DAILY SQ 11/28/24 08:00 12/28/24 07:59 11/29/24 08:27 40 MG Famotidine (Pepcid 20mg Vial) 20 mg BID IV 11/27/24 21:00 12/27/24 20:59 11/29/24 08:26 20 MG Folic Acid (FOLic ACID 1 MG TABLET) 1 mg DAILY PO 11/29/24 09:00 12/29/24 08:59 11/29/24 08:27 1 MG Gabapentin (NEURontin 100 mg CAP) 200 mg TID PO 11/27/24 21:00 12/27/24 20:59 11/29/24 13:23 200 MG Glucagon (Glucagon 1mg Kit) 1 mg AD PRN IM HYPOGLYCEMIA PROTOCOL 11/27/24 16:00 12/27/24 15:59 Hydromorphone HCl (DiLAUDid 0.5MG INJ) 0.5 mg Q4H PRN IVP SEVERE PAIN (7-10) 11/27/24 14:30 12/02/24 14:29 Insulin Human Regular (humuLIN R 100 UNIT/ML 3ML) AD PRN SQ SLIDING SCALE COVERAGE 11/27/24 14:30 11/27/24 15:57 DC Insulin Human Regular (humuLIN R 100 UNIT/ML 3ML) INSULIN SLIDING SCAL... ACHS SQ 11/27/24 16:30 12/27/24 16:29 11/27/24 21:08 5 UNIT Lactated Ringer's 1,000 ml @ 75 mls/hr [id number] IV 11/27/24 14:30 12/27/24 14:29 11/29/24 12:45 75 MLS/HR Lisinopril (Prinivil 20mg) 20 mg HS PO 11/27/24 21:00 12/27/24 20:59 Ondansetron HCl (zoFRAN 4MG INJ) 4 mg Q4H PRN IVP NAUSEA 11/27/24 14:30 12/27/24 14:29 Oxycodone HCl (ROXicoDONE) 5 mg Q4H PRN PO MODERATE PAIN (4-6) 11/27/24 14:30 12/04/24 14:29 Vitamin B Complex (Vitamin B-12) 1,000 mcg DAILY PO 11/28/24 16:30 11/29/24 08:06 DC 11/28/24 16:36 1,000 MCG Diagnostics / Radiology: [COPY/PASTE HERE IF NO REPORTS PLEASE DELETE SECTION] Assessment: [Coloanal Anastomotic stricture Ileostomy status Anemia History of rectal cancer Hypertension Type 1 DM ] Plan: Case discussed with Dr. Cantrell Transfuse 1 unit of PRBC [Soft diet Encourage ambulation Encourage I/S exercises Pain meds as needed Antiemetics prn He has f/u appt at [facility] office on 12/05/24 at 10:00am Please call with questions, concerns, and change in clinical status Appreciate hospitalist's assistance on our patient's care. ] KEVIN PATTON NP Nov 29, 2024 15:16
--- NOTE | 2024-11-29 17:10 | PN ---
[facility] PROGRESS NOTE Date of Service: Nov 29, 2024 Time of Service: 16:48 SUBJECTIVE: 49-year-old male with past medical history of rectal cancer, hypertension, diabetes mellitus type 2 who presented to the hospital secondary to who presented to the hospital secondary to coloanal anastomotic stricture. The patient had previously undergone a low anterior resection with coloanal anasto mosis with subsequent colo anal anastomotic severe stricture which was unable to be salvaged. Patient was offered permanent stoma with colostomy and ileostomy closure. The patient was evaluated by Colorectal surgery as outpatient and agreed to the procedure. Patient underwent robotic low anterior resection without anastomosis, robotic/laparoscopic colostomy creation, ileostomy closure with small bowel resection by Dr. cerrato on 11/27/2024. The patient seen postprocedure. Currently denies any chest pain, shortness of breath, abdominal pain, nausea, vomiting. The patient is being followed by Dr. Thurman oncologist in [place]. Currently he is not on chemotherapy. Labs were notable for white count of 3.8, hemoglobin was 9.2, MCV was 104.6, platelet count was 256 K, sodium was 139, potassium was 5.1, creatinine was 1.1, blood glucose was 178 With a history of rectal cancer status post low anterior resection with coloanal anastomosis with subsequent coloanal anastomotic severe stricture which was unable to be salvaged. Given this the patient was offered a permanent stoma with a colostomy with ileostomy closure. He underwent Robotic Low Anterior resection without anastomosis ,Robotic/Laparoscopic Colostomy creation and Ileostomy closure with small bowel resection. 11/28/2024: Patient was evaluated bedside. He was AAO x3. he had mild abdominal discomfort. Dressing at the surgical site intact. Remarkable for hemoglobin 7.4, creatinine 1.3. Patient was started on clear liquid diet which he tolerated well. Physical therapy on board. He is being followed by colorectal surgeon. Rest of the plan as discussed below 11/29/2024: Patient was evaluated bedside this morning. He is AAO x3. he is hemodynamically stable. he complains of very mild abdominal discomfort. Dressing at the surgical site intact without soakage. Remarkable lab is for hemoglobin 7.2, iron saturation 27.6, iron 62, TIBC 224, vitamin B12 142. He is on LR at 75 mL/hour, IV iron, vitamin B12 and folic acid. He is tolerating diet. Getting physical therapy. Colorectal surgeon following the case. Rest of the plan as discussed below REVIEW OF SYSTEMS CONSTITUTIONAL: Denies fevers, chills, or night sweats. No unintentional weight loss reported. NEUROLOGICAL: Denies headache, amaurosis fugax, motor weakness, sensory deficit, vertigo/spinning sensation, gait abnormalities, or tremors. ENT: No hearing loss, otalgia, otorrhea, rhinitis, rhinorrhea, hoarseness, or sore throat. CARDIOVASCULAR: Denies any exertional angina, dyspnea on exertion, orthopnea, paroxysmal nocturnal dyspnea, palpitations, life-threatening arrhythmias, claudication. PULMONARY: Denies any shortness of breath, cough, phlegm/sputum, hemoptysis, pleuritic chest pain. SLEEP: Denies morning headaches, daytime somnolence or napping. Denies difficulty falling asleep, staying asleep, waking from sleep. Denies knowledge of snoring. GASTROINTESTINAL: Denies any type of dysphagia to either liquids or solids. Denies nausea, vomiting, pyrosis, early satiety, abdominal pain, diarrhea, constipation, or changes in stool consistency or caliber. Denies coffee-ground emesis, hematemesis, hematochezia, or melanotic stools. GENITOURINARY: Denies frequency, urgency, nocturia, hematuria or incontinence (Storage/Irritative symptoms.) Low urinary stream, straining to void, urinary intermittency or hesitancy, splitting of the voiding stream, terminal dribbling. ENDOCRINOLOGIC: Denies polyuria, polydipsia, polyphagia or heat/cold intolerances. HEMATOLOGIC: Denies thrombophilia/previous clots, or coagulopathy/bleeding disorders. ONCOLOGIC: Denies personal history of malignancy. DERMATOLOGIC: Denies rashes or pruritus. PSYCHIATRIC: Denies any suicidal or homicidal ideation. Denies hallucinations. PHYSICAL EXAM GENERAL APPEARANCE: The patient is awake, alert, and oriented, in no acute cardiopulmonary distress. NEUROLOGICAL: Cranial nerves II-XII grossly intact. Motor is 5/5 in bilateral upper and lower extremities proximal to distal. No sensory deficits. HEENT: Face is symmetric. Pupils are equal and reactive. Extraocular movements are intact. NECK: Supple. No JVD. No thyromegaly. No submental, submandibular, pre- /postauricular, occipital or supraclavicular lymphadenopathy. CHEST: Normal chest expansion. No Telemetry. LUNGS: Absence of any rales, rhonchi or any wheezing. CARDIOVASCULAR: Regular. S1 and S2 normal. No appreciable rubs, murmurs or gallops. ABDOMEN: Soft, nontender, and nondistended. There is no rebound, voluntary guarding, or rigidity. : Deferred. No Hugo. EXTREMITIES: Non-edematous and not cyanotic. No clubbing. Good capillary refill. SKIN: No skin breakdown. Vital Signs (last 8hr) Date Time Temp Pulse Resp B/P (MAP) Pulse Ox O2 Delivery O2 Flow Rate FiO2 11/29/24 16:00 98.1 87 19 133/80 99 Room Air 21 11/29/24 12:00 98.2 90 18 153/76 98 Room Air 21 LABS: Laboratory: Test 11/29/24 15:25 11/29/24 13:54 11/29/24 05:09 11/28/24 06:05 Range/Units Whole Blood Glucose 159 H 70-110 MG/DL Hemoglobin 7.3 L 14.0-18.0 g/dL Hematocrit 21.0 *L 42-54 % White Blood Count 5.7 4.8-10.8 K/uL Red Blood Count 2.05 L 4.50-6.20 MIL/uL Mean Corpuscular Volume 103.4 H 79-99 fL Mean Corpuscular Hemoglobin 35.1 H 27.0-33.0 pg Mean Corpuscular Hemoglobin Concent 34.0 32.0-36.0 g/dL Red Cell Distribution Width 13.8 11.0-15.5 % Platelet Count 217 130-400 K/uL Mean Platelet Volume 10.1 7.5-10.5 fL Immature Granulocyte % (Auto) 0.7 0-1 % Neutrophils (%) (Auto) 72.7 40.0-77.0 % Lymphocytes (%) (Auto) 10.9 L 21.0-51.0 % Monocytes (%) (Auto) 14.4 H 3.0-13.0 % Eosinophils (%) (Auto) 1.1 0.0-8.0 % Basophils (%) (Auto) 0.2 0.0-5.0 % Neutrophils # (Auto) 4.1 1.8-7.7 K/uL Lymphocytes # (Auto) 0.6 L 1.0-4.8 K/uL Monocytes # (Auto) 0.8 0.1-1.0 K/uL Eosinophils # (Auto) 0.06 0.00-0.70 K/uL Basophils # (Auto) 0.01 0.00-0.20 K/uL Absolute Immature Granulocyte (auto 0.04 0-1 K/uL Nucleated Red Blood Cells 0.0 0.0-0.19 % Sodium Level 137 136-145 mmol/L Potassium Level 4.1 3.5-5.1 mmol/L Chloride Level 106 101-111 mmol/L Carbon Dioxide Level 26 21-32 mmol/L Blood Urea Nitrogen 17 7-18 mg/dL Creatinine 0.9 0.5-1.3 mg/dL Glomerular Filtration Rate Calc 103 >90 mL/min Random Glucose 127 H 70-105 mg/dL Total Calcium 8.2 L 8.5-10.1 mg/dL Reticulocyte Count (auto) 1.00124 0.42-2.23 % Immature Reticulocyte Fraction 21.20 H 0.18-0.48 % Iron Level 62 L 65-175 mcg/dL Total Iron Binding Capacity 224 L 250-450 mcg/dL Percent Iron Saturation 27.6 L 30-44 % Ferritin 60 30-400 ng/mL Vitamin B12 Level 142 L 193-986 pg/mL Current Medications Medications (Trade) Dose Ordered Sig/Ken Route PRN Reason Start Time Stop Time Status Last Admin Dose Admin Acetaminophen (TYLenol 325MG TAB) 650 mg Q4H PO 11/27/24 14:30 11/28/24 15:49 DC 11/28/24 13:20 650 MG Acetaminophen (TYLenol 500MG TAB) 1,000 mg Q6H PRN PO MILD PAIN (1-3) 11/28/24 16:00 12/28/24 15:59 Dextrose (D50w) 50 ml AD PRN IV HYPOGLYCEMIA PROTOCOL 11/27/24 16:00 12/27/24 15:59 Enoxaparin Sodium (Lovenox) 40 mg DAILY SQ 11/28/24 08:00 12/28/24 07:59 11/29/24 08:27 40 MG Famotidine (Pepcid 20mg Vial) 20 mg BID IV 11/27/24 21:00 12/27/24 20:59 11/29/24 08:26 20 MG Folic Acid (FOLic ACID 1 MG TABLET) 1 mg DAILY PO 11/29/24 09:00 12/29/24 08:59 11/29/24 08:27 1 MG Gabapentin (NEURontin 100 mg CAP) 200 mg TID PO 11/27/24 21:00 12/27/24 20:59 11/29/24 13:23 200 MG Glucagon (Glucagon 1mg Kit) 1 mg AD PRN IM HYPOGLYCEMIA PROTOCOL 11/27/24 16:00 12/27/24 15:59 Hydromorphone HCl (DiLAUDid 0.5MG INJ) 0.5 mg Q4H PRN IVP SEVERE PAIN (7-10) 11/27/24 14:30 12/02/24 14:29 Insulin Human Regular (humuLIN R 100 UNIT/ML 3ML) AD PRN SQ SLIDING SCALE COVERAGE 11/27/24 14:30 11/27/24 15:57 DC Insulin Human Regular (humuLIN R 100 UNIT/ML 3ML) INSULIN SLIDING SCAL... ACHS SQ 11/27/24 16:30 12/27/24 16:29 11/27/24 21:08 5 UNIT Lactated Ringer's 1,000 ml @ 75 mls/hr [id number] IV 11/27/24 14:30 12/27/24 14:29 11/29/24 12:45 75 MLS/HR Lisinopril (Prinivil 20mg) 20 mg HS PO 11/27/24 21:00 12/27/24 20:59 Ondansetron HCl (zoFRAN 4MG INJ) 4 mg Q4H PRN IVP NAUSEA 11/27/24 14:30 12/27/24 14:29 Oxycodone HCl (ROXicoDONE) 5 mg Q4H PRN PO MODERATE PAIN (4-6) 11/27/24 14:30 12/04/24 14:29 Vitamin B Complex (Vitamin B-12) 1,000 mcg DAILY PO 11/28/24 16:30 11/29/24 08:06 DC 11/28/24 16:36 1,000 MCG DIAGNOSTICS / RADIOLOGY: [ ] ASSESSMENT: [place] anal anastomotic stricture status post robotic low anterior resection without anastomosis, robotic/laparoscopic colostomy creation, ileostomy closure with small bowel resection Hypertension Diabetes mellitus type 2 Macrocytic anemia Rectal cancer PLAN: [place] anal anastomotic stricture status post robotic low anterior resection without anastomosis, robotic/laparoscopic colostomy creation, ileostomy closure with small bowel resection Rectal cancer -We will follow surgical recommendations. -We will follow up pain medication recommendations per surgery. -Incentive spirometer Q 1-2 hours -repeat CBC, BMP for tomorrow Diabetes mellitus type 2 -start sliding scale insulin and hypoglycemia protocol Macrocytic anemia -hemoglobin 7.4>7.2, ferritin 60, saturation 27.6, iron 62, TIBC 224, B12 142 -we will give iron sucrose -we will start him on vitamin B12 and folic acid DVT prophylaxis: Lovenox GI prophylaxis: famotidine ATTESTATION BY PHYSICIAN I have seen and examined the patient. I reviewed the documentation, medical decision making, and treatment plan as noted by the mid-level provider above. I agree with the findings and plan of care. AZAEL WYLIE MD, SUNIL MD Nov 29, 2024 17:10
--- NOTE | 2024-11-29 18:00 | NUR ---
BLOOD TRANSFUSION PT A&OX4. NON LABORED BREATHING. DENIES PAIN AT THIS TIME. FAMILY AT BEDSIDE. V/S WITHIN NORMAL RANGE.
[2024-11-30 00:40] VITALS: BP 115/64; PULSE 78; RESP 18; TEMP 98.5
[2024-11-30 04:50] LABS: IMMATURE GRANULOCYTE ABSOLUTE 0.04 K/uL (0-1); NUCLEATED RED BLOOD CELLS 0.0 % (0.0-0.19); PLATELET COUNT (AUTO) 207 K/uL (130-400); RED BLOOD CELL COUNT(AUTO) 2.51 MIL/uL (4.50-6.20); RED CELL DISTRIBUTION WIDTH 16.9 % (11.0-15.5); WHITE BLOOD COUNT (AUTO) 5.6 K/uL (4.8-10.8)
[2024-11-30 05:01] LABS: ASPARTATE AMINOTRANSFERASE 30.0 U/L (10-37); CREATININE 0.7 mg/dL (0.5-1.3); GLOMERULAR FILTR. RATE CALC 112.0 mL/min (>90); GLUCOSE,RANDOM 122.0 mg/dL (70-105); SODIUM SERUM 138.0 mmol/L (136-145); TOTAL PROTEIN, SERUM 6.5 g/dL (6.0-8.3); UREA NITROGEN, BLOOD 14.0 mg/dL (7-18)
[2024-11-30 05:20] VITALS: BP 125/71; PULSE 83; RESP 18; TEMP 98.1
[2024-11-30 07:30] VITALS: O2SAT 98
--- NOTE | 2024-11-30 07:38 | PN ---
COLORECTAL PROGRESS NOTE Date of Visit: Nov 30, 2024 Time of Visit: 07:37 Events / Notes: [49 yo with history of rectal cancer, ileostomy status, hypertension, Type 1 DM, who developed coloanal anastomotic stricture and underwent a robotic low anterior resection without anastomosis, colostomy creation, ileostomy closure with small bowel resection, systemic ICG for assessment of anastomotic grafts. Patient is doing very well. VSS. He has tolerated fluids without any n/v. BBS are clear. Abdomen is soft. Large amounts of soft to watery output from colostomy. 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 Stevie drain with serosanguinous output. Patient has voided without difficulties. Encouraged ambulation. Patient agreed. 11/29/24: No acute events overnight. VSS. Patient is tolerating soft diet with no n/v. He is ambulating and is having good output from colostomy. HGB 7.3. PRBC transfusion in progress. . Home care instructions given with ER warnings. He is to keep f/u appt at [facility] and with John Hunt NP wound care. Plan for discharge from colorectal standpoint tomorrow. 11/30/25:WBC 5.6, hemoglobin increased 2.5, platelets 207. Glucose 122, calcium 8.2 alkaline phos 235, albumin 2.6. VSS. Patient has tolerated soft diet without any nausea or vomiting. He continues to have good formed output from colostomy. Plan for discharge today. Home care instructions will given. Review of Systems: CONSTITUTIONAL: No malaise or change in sensation of wellbeing. ENMT: No rhinorrhea, otorrhea, sinus pain, ear ache. CARDIOVASCULAR: No angina, palpitations, orthopnea or paroxysmal dyspnea. RESPIRATORY: No SOB. GASTROINTESTINAL: No abdominal pain, nausea, vomiting, diarrhea, hematemesis, melena or change in the patient's habitual bowel movements consistency/number. GENITOURINARY: No dysuria, hematuria or change in bladder continence. MUSCULOSKELETAL: No new muscle pain or decrease in muscular strength. No new joint swelling, redness or tenderness. SKIN: No new rash. Physical Exam: GEN: Awake, alert, oriented in person, time and place, and in no acute distress. HEENT: No rhinorrhea. Oral pharyngeal mucosa is moist and within normal limits. CHEST: Lung auscultation revealed normal breath sounds bilaterally. CARDIAC: Heart sounds are regular. ABD: Soft, non-tender and not distended. No peritoneal signs on palpation. Normal bowel sounds. Colostomy with large amounts of soft to watery output. EXT: No cyanosis or clubbing. No edema. SKIN: Intact. No rashes. JOINTS: No evidence of synovitis or acute arthritis. NEURO: Alert and oriented to name, place and person. No focal motor deficits. Normal speech. Vital Signs (last 8hr) Date Time Temp Pulse Resp B/P (MAP) Pulse Ox O2 Delivery O2 Flow Rate FiO2 11/30/24 05:20 98.1 83 18 125/71 98 Room Air 11/30/24 00:40 98.4 78 18 115/64 97 Room Air Laboratory: [ ] Laboratory: Test 11/30/24 06:16 11/30/24 04:30 Range/Units Whole Blood Glucose 120 H 70-110 MG/DL White Blood Count 5.6 4.8-10.8 K/uL Red Blood Count 2.51 #L 4.50-6.20 MIL/uL Hemoglobin 8.5 L 14.0-18.0 g/dL Hematocrit 25.3 L 42-54 % Mean Corpuscular Volume 100.8 H 79-99 fL Mean Corpuscular Hemoglobin 33.9 H 27.0-33.0 pg Mean Corpuscular Hemoglobin Concent 33.6 32.0-36.0 g/dL Red Cell Distribution Width 16.9 H 11.0-15.5 % Platelet Count 207 130-400 K/uL Mean Platelet Volume 9.7 7.5-10.5 fL Immature Granulocyte % (Auto) 0.7 0-1 % Neutrophils (%) (Auto) 73.2 40.0-77.0 % Lymphocytes (%) (Auto) 10.9 L 21.0-51.0 % Monocytes (%) (Auto) 13.2 H 3.0-13.0 % Eosinophils (%) (Auto) 1.8 0.0-8.0 % Basophils (%) (Auto) 0.2 0.0-5.0 % Neutrophils # (Auto) 4.1 1.8-7.7 K/uL Lymphocytes # (Auto) 0.6 L 1.0-4.8 K/uL Monocytes # (Auto) 0.7 0.1-1.0 K/uL Eosinophils # (Auto) 0.10 0.00-0.70 K/uL Basophils # (Auto) 0.01 0.00-0.20 K/uL Absolute Immature Granulocyte (auto 0.04 0-1 K/uL Nucleated Red Blood Cells 0.0 0.0-0.19 % Sodium Level 138 136-145 mmol/L Potassium Level 3.7 3.5-5.1 mmol/L Chloride Level 106 101-111 mmol/L Carbon Dioxide Level 27 21-32 mmol/L Blood Urea Nitrogen 14 7-18 mg/dL Creatinine 0.7 0.5-1.3 mg/dL Glomerular Filtration Rate Calc 112 >90 mL/min Random Glucose 122 H 70-105 mg/dL Total Calcium 8.2 L 8.5-10.1 mg/dL Total Bilirubin 0.4 0.2-1.0 mg/dL Aspartate Amino Transf (AST/SGOT) 30 10-37 U/L Alanine Aminotransferase (ALT/SGPT) 39 12-78 U/L Alkaline Phosphatase 235 H 50-136 U/L Total Protein 6.5 6.0-8.3 g/dL Albumin 2.6 L 3.5-5.0 g/dL Current Medications Medications (Trade) Dose Ordered Sig/Ken Route PRN Reason Start Time Stop Time Status Last Admin Dose Admin Acetaminophen (TYLenol 325MG TAB) 650 mg Q4H PO 11/27/24 14:30 11/28/24 15:49 DC 11/28/24 13:20 650 MG Acetaminophen (TYLenol 500MG TAB) 1,000 mg Q6H PRN PO MILD PAIN (1-3) 11/28/24 16:00 12/28/24 15:59 Dextrose (D50w) 50 ml AD PRN IV HYPOGLYCEMIA PROTOCOL 11/27/24 16:00 12/27/24 15:59 Enoxaparin Sodium (Lovenox) 40 mg DAILY SQ 11/28/24 08:00 12/28/24 07:59 11/29/24 08:27 40 MG Famotidine (Pepcid 20mg Vial) 20 mg BID IV 11/27/24 21:00 12/27/24 20:59 11/29/24 21:27 20 MG Folic Acid (FOLic ACID 1 MG TABLET) 1 mg DAILY PO 11/29/24 09:00 12/29/24 08:59 11/29/24 08:27 1 MG Gabapentin (NEURontin 100 mg CAP) 200 mg TID PO 11/27/24 21:00 12/27/24 20:59 11/29/24 21:27 200 MG Glucagon (Glucagon 1mg Kit) 1 mg AD PRN IM HYPOGLYCEMIA PROTOCOL 11/27/24 16:00 12/27/24 15:59 Hydromorphone HCl (DiLAUDid 0.5MG INJ) 0.5 mg Q4H PRN IVP SEVERE PAIN (7-10) 11/27/24 14:30 12/02/24 14:29 Insulin Human Regular (humuLIN R 100 UNIT/ML 3ML) AD PRN SQ SLIDING SCALE COVERAGE 11/27/24 14:30 11/27/24 15:57 DC Insulin Human Regular (humuLIN R 100 UNIT/ML 3ML) INSULIN SLIDING SCAL... ACHS SQ 11/27/24 16:30 12/27/24 16:29 11/27/24 21:08 5 UNIT Lactated Ringer's 1,000 ml @ 75 mls/hr [id number] IV 11/27/24 14:30 12/27/24 14:29 11/29/24 12:45 75 MLS/HR Lisinopril (Prinivil 20mg) 20 mg HS PO 11/27/24 21:00 12/27/24 20:59 11/29/24 21:27 20 MG Ondansetron HCl (zoFRAN 4MG INJ) 4 mg Q4H PRN IVP NAUSEA 11/27/24 14:30 12/27/24 14:29 Oxycodone HCl (ROXicoDONE) 5 mg Q4H PRN PO MODERATE PAIN (4-6) 11/27/24 14:30 12/04/24 14:29 Vitamin B Complex (Vitamin B-12) 1,000 mcg DAILY PO 11/28/24 16:30 11/29/24 08:06 DC 11/28/24 16:36 1,000 MCG Diagnostics / Radiology: [COPY/PASTE HERE IF NO REPORTS PLEASE DELETE SECTION] Assessment: [Coloanal Anastomotic stricture Ileostomy status Anemia History of rectal cancer Hypertension Type 1 DM ] Plan: Case discussed with Dr. Cantrell [Soft diet Encourage ambulation Encourage I/S exercises Pain meds as needed Antiemetics prn Patient may be discharged from colorectal standpoint. He has f/u appt at [facility] office on 12/05/24 at 10:00am Please call with questions, concerns, and change in clinical status Appreciate hospitalist's assistance on our patient's care. ] KEVIN PATTON NP Nov 30, 2024 07:37
[2024-11-30 08:00] VITALS: BP 130/78; PULSE 85; RESP 17; TEMP 98.2
[2024-11-30 12:00] VITALS: BP 119/69; PULSE 84; RESP 16; TEMP 97.8
--- NOTE | 2024-11-30 16:56 | DS ---
Discharge Summary Hospital Course Summary: 49-year-old male with past medical history of rectal cancer, hypertension, diabetes mellitus type 2 who presented to the hospital secondary to who presented to the hospital secondary to coloanal anastomotic stricture. The patient had previously undergone a low anterior resection with coloanal anastomosis with subsequent colo anal anastomotic severe stricture which was unable to be salvaged. Patient was offered permanent stoma with colostomy and ileostomy closure. The patient was evaluated by Colorectal surgery as outpatient and agreed to the procedure. Patient underwent robotic low anterior resection without anastomosis, robotic/laparoscopic colostomy creation, ileostomy closure with small bowel resection by Dr. gimenez on 11/27/2024. The patient seen postprocedure. Currently denies any chest pain, shortness of breath, abdominal pain, nausea, vomiting. The patient is being followed by Dr. Thurman oncologist in [place]. Currently he is not on chemotherapy. Labs were notable for white count of 3.8, hemoglobin was 9.2, MCV was 104.6, platelet count was 256 K, sodium was 139, potassium was 5.1, creatinine was 1.1, blood glucose was 178 With a history of rectal cancer status post low anterior resection with coloanal anastomosis with subsequent coloanal anastomotic severe stricture which was unable to be salvaged. Given this the patient was offered a permanent stoma with a colostomy with ileostomy closure. He underwent Robotic Low Anterior resection without anastomosis ,Robotic/Laparoscopic Colostomy creation and Ileostomy closure with small bowel resection. 11/28/2024: He was AAO x3. he had mild abdominal discomfort. Dressing at the surgical site intact. Remarkable for hemoglobin 7.4, creatinine 1.3. Patient was started on clear liquid diet which he tolerated well. Physical therapy on board. Being followed by colorectal surgeon. Rest of the plan as discussed below 11/29/2024: He was AAO x3. He was hemodynamically stable. he complains of very mild abdominal discomfort. Dressing at the surgical site intact without s [place]. Remarkable lab is for hemoglobin 7.2, iron saturation 27.6, iron 62, TIBC 224, vitamin B12 142. He is on LR at 75 mL/hour, IV iron, vitamin B12 and folic acid. He is tolerating diet. Getting physical therapy. Colorectal surgeon following the case. 11/30/2024: He is hemodynamically stable. He will need complained of mild abdominal discomfort. He got1 unit of PRBC on 0 11/29 and post transfusion hemoglobin 8.6. He is tolerating diet well. Colorectal surgeon cleared him for discharge. He is stable enough to be discharged with supplementation of vitamin B12, iron and folic acid tablet. He will follow up to PCP in 3 days and has follow up appointment at [facility] office on 12/05/24 at 10:00am. Marine Structural Welder(s): Colorectal surgeon for colostomy with closure of ileostomy and anterior resection without anastomosis. Procedure(s): Operative Note: DATE OF PROCEDURE: 11/27/24 SURGEON: GAIL GIMENEZ MD CONSERVATION BIOLOGY PROFESSOR: None ANESTHESIA: General ANESTHESIOLOGIST/TALENT DEVELOPMENT DIRECTOR: TALENT DEVELOPMENT DIRECTOR PREOPERATIVE DIAGNOSIS: Coloanal anastomotic stricture History of rectal cancer Ileostomy status POSTOPERATIVE DIAGNOSIS: Same PROCEDURE: Robotic Low Anterior resection without anastomosis Robotic/Laparoscopic Colostomy creation Ileostomy closure with small bowel resection Systemic ICG for assessment of anastomotic grafts ESTIMATED BLOOD LOSS: [] INDICATIONS: Mr. Triana is a very pleasant 49-year-old male with a history of rectal cancer status post low anterior resection with coloanal anastomosis with subsequent coloanal anastomotic severe stricture which was unable to be salvaged. Given this the patient was offered a permanent stoma with a colostomy with ileostomy closure. Complications, risk, alternative and benefits were explained to the patient including but not limited to infection, bleeding, injury to surrounding structures such as blood vessels nerves and other organs, permanent stoma, sepsis, recurrence of disease and need for additional procedures. The patient voiced understanding and wished to proceed with surgery. All of the patient's questions were answered to his satisfaction. DESCRIPTION OF PROCEDURE: After informed consent was obtained, the patient was taken to the operating room and laid in the supine position. Once general endotracheal anesthesia was obtained, the patient was carefully placed into the lithotomy position. Next the abdomen was prepped and draped in the usual sterile fashion. A timeout was performed to confirm the correct patient and procedure. Next we entered the abdomen at Hernandez's point with a Veress needle and was confirmed to be intra-abdominal with a saline drop test. Next pneumoperitoneum was obtained, we then made an 8 mm incision followed placement of a trocar. The camera was inserted and the abdomen was inspected Next the remaining trocars w ere inserted under direct visualization in a horizontal manner across the mid abdomen at prior incision sites. Next the robot was docked in the usual sterile fashion. We then placed an assist port in left upper quadrant given the ileostomy was in the right upper quadrant. We began by mobilizing the sigmoid colon in a [id number] manner. There was a significant amount of adhesions given his prior low anterior resection against a left pelvic sidewall. We took the proximal sigmoid colon off of the left lower quadrant and left pelvic sidewall. We then dissected posteriorly to find a plane to the side promontory and then was able to identify the lateral side ensuring that we did not into the retroperitoneum the area of the ureter. We then dissected posteriorly which was extremely difficult due to the prior surgery and radiation to the pelvis. We took the mesentery of the proximal sigmoid colon up to a healthy portion of the bowel. Then transected with a blue load stapler. We then continued the pelvic dissection laterally on both the left and right side. This tissue was extremely vascular and scarred making the dissection extremely difficult. The patient's pelvis was also extremely small and fibrotic to the prior radiation. We dissected as distal as possible taking great care to not injure pelvic structures. We got below the level of the prostate tissue the pelvis was extremely firm and fibrotic. Given this we then transected the far distal as possible with a blue load stapler. Systemic ICG was given intravenously and confirmed the remaining colon in the pelvis was well-perfused as well as the colon to be used for the colostomy. We then irrigated the pelvis until clear and ensured hemostasis. We then placed hemostatic powder down to the pelvis. We then undocked the robot and began to take down the ileostomy.Next the ileostomy site was incised leaving a small rim of skin. Dissection was carried down to release the small bowel from the surrounding tissue and fascia. We then took great care to separate the small bowel from the surrounding fascia. Once this was performed we are able to pull up an adequate amount of small bowel to perform and anastomosis. We chose two healthy segments of small bowel and performed a small bowel resection of the small bowel between these points. The mesentery was clamped and tied for hemostasis. Next using a blue load HÉCTOR stapler the proximal and distal small bowel were transected and the small bowel sent as specimen. Next, an allis clamp was placed onto the edge of the staple line, this was cut off and the stapler placed into the small bowel. A performed a side to side stapled small bowel anastomosis in the standard fashion. Prior to closing the common enterotomy hemostasis of the interior staple line was checked for and obtained. Next allis clamps were placed onto the common enterotomy which was closed with a TA 60 stapler. Next the staple line was oversewn. A crotch stitch was placed. Hemostasis was checked for and obtained. Next the small bowel was placed back into the abdomen. We then placed a wound protector into this area and regained pneumoperitoneum. We assured hemostasis and placed additional hemostatic powder into the left lower quadrant. We then grasped the colon and brought it out through this wound protector at the prior ileostomy site. It was decided to matured the colostomy at this site to avoid complex hernia formation in the future. We then left a drain down to the pelvis. All trocars were removed and the 12 mm port site was closed with a Vicryl stitch. A drain stitch stay drain in place. We then closed all skin incisions with Monocryl sutures and Dermabond was placed as sterile dressing. We then mat ured the colostomy in the usual fashion using chromic sutures. An ostomy appliance was placed. The patient tolerated the procedure well was taken to the recovery in stable condition. I discussed the above with the family member at completion of the case. Complications: none Blood loss 30cc Specimens: small bowel Colon COUNTS WERE REPORTED CORRECT X 2 BY NURSING STAFF GAIL GIMENEZ MD Nov 27, 2024 14:28 Electronically Signed by: GAIL GIMENEZ MD11/27/24 1422 Electronically Co-Signed by: Assessment/Plan: DISCHARGE DIAGNOSIS: Patient with h/o rectal cancer s/p robotic low anterior resection, coloanal pull-through anastomosis and diverting loop ileostomy creation on 07.25.24 Sully anal anastomotic stricture , POA status post robotic low anterior resection without anastomosis, robotic/laparoscopic colostomy creation, ileostomy closure with small bowel resection on 11.27.24 Acute blood loss anemia Acute kidney injury , POA Hypertension Diabetes mellitus type 2 Macrocytic anemia secondary to vitamin B12 deficiency Rectal cancer Discharge Instructions: -continue your home medications as instructed. -we have prescribed you iron, vitamin B12 and folic acid tablets. Please take it as instructed. -follow up with PCP in 3 days -follow up appointment at [facility] office on 12/05/24 at 10:00am -continue soft GI diet -activities as tolerated Home Medications: Active Scripts Cyanocobalamin/Folic Acid (Vitamin K36-Sfjlh Acid Tablet) 500 Mcg-400 Mcg Tablet, 1 TAB PO DAILY for 30 Days, #30 TAB 0 Refills Prov:ADONAY BOWERS MD 11/30/24 Ferrous Sulfate (Ferrous Sulfate) 325 Mg (65 Mg Iron) Tablet, 325 MG PO QODAY for 30 Days, #30 TAB 0 Refills Prov:ADONAY BOWERS MD 11/30/24 Reported Medications Lisinopril (Lisinopril) 20 Mg Tablet, 20 MG PO HS, TAB 07/06/24 Metformin HCl (Metformin HCl) 500 Mg Tablet, 500 MG PO BID, TAB 07/06/24 Discontinued Scripts Tamsulosin HCl (Flomax) 0.4 Mg Cap.er.24h, 0.4 MG PO DAILY, #30 CAPSULE.DR 0 Refills Prov:DARLIN WRIGHT AGREBECA 07/27/24 New Medications: Cyanocobalamin/Folic Acid (Vitamin O91-Uaezd Acid Tablet) 500 Mcg-400 Mcg Tablet 1 TAB PO DAILY for 30 Days, #30 TAB 0 Refills Ferrous Sulfate (Ferrous Sulfate) 325 Mg (65 Mg Iron) Tablet 325 MG PO QODAY for 30 Days, #30 TAB 0 Refills Continued Medications: Lisinopril (Lisinopril) 20 Mg Tablet 20 MG PO HS, TAB Metformin HCl (Metformin HCl) 500 Mg Tablet 500 MG PO BID, TAB Time spent arranging discharge: 1-30 minutes ATTESTATION BY PHYSICIAN I have seen and examined the patient. I reviewed the documentation, medical dec ision making, and treatment plan as noted by the mid-level provider above. I agree with the findings and plan of care. AZAEL WYLIE MD, SUNIL MD Nov 30, 2024 16:56 ADONAY BOWERS MD Nov 30, 2024 18:53
[2024-11-30] MEDS ORDERED: CYAN1TAB44 PO (17:37)
[2024-11-30] MEDS ORDERED: FERR-72 PO (17:37)
== END 2024-11-30 19:15 | disposition home or self-care (01) | DRG 330 ==
LOC: DAHIP 11-27 07:07 → 3DH 11-27 14:55
PROVIDERS: ADMIT Internal Medicine; ATTEND Internal Medicine
PROC: 0D1E4Z4 Bypass Large Intestine to Cutaneous, Percutaneous Endoscopic Approach (ICD-10-PCS; 2024-11-27)
PROC: 8E0W4CZ Robotic Assisted Procedure of Trunk Region, Percutaneous Endoscopic Approach (ICD-10-PCS; 2024-11-27)
PROC: 4A1BXSH Monitoring of Gastrointestinal Vascular Perfusion using Indocyanine Green Dye, External Approach (ICD-10-PCS; 2024-11-27)
PROC: 0DBP4ZZ Excision of Rectum, Percutaneous Endoscopic Approach (ICD-10-PCS; 2024-11-27)
PROC: 0DBB4ZZ Excision of Ileum, Percutaneous Endoscopic Approach (ICD-10-PCS; 2024-11-27)
PROC: 0DB84ZZ Excision of Small Intestine, Percutaneous Endoscopic Approach (ICD-10-PCS; principal; 2024-11-27 09:00)
PROC: 30233N1 Transfusion of Nonautologous Red Blood Cells into Peripheral Vein, Percutaneous Approach (ICD-10-PCS; 2024-11-29)
DX: Z43.2 Encounter for attention to ileostomy (principal); D62 Acute posthemorrhagic anemia; N17.9 Acute kidney failure, unspecified; D50.9 Iron deficiency anemia, unspecified; I10 Essential (primary) hypertension; D51.9 Vitamin B12 deficiency anemia, unspecified; D53.9 Nutritional anemia, unspecified; E10.9 Type 1 diabetes mellitus without complications; Z85.048 Personal history of other malignant neoplasm of rectum, rectosigmoid junction, and anus; Z79.4 Long term (current) use of insulin; Z92.3 Personal history of irradiation
CPT/HCPCS: 36415; 36430; 80048; 80053; 82607; 82728; 82948; 85014; 85018; 85025; 85610; 85730; 86850; 86900; 86901; 86923; 88304; 88307; 93005; A4344; A4450; G0378; J1100; J1171; J1335; J1650; J1756; J1815; J2003; J2250; J2405; J2704; J3010; J3420; J3490; J7030; J7050; J7120; P9016; A4213; A4215; A4216; A4221; A4222; A4223; A4600; A4649; A4663; A4930; A6260; C1769; J0665; J1308